=== PATIENT | male | born 1960 | race Two or more races ===

== ENCOUNTER → 2017-03-23 | Outpatient (CLI) | payer OTHER | END | disposition home or self-care (01) | LOC: RAD 13:24 | DX: M77.22 Periarthritis, left wrist (principal) ==

== ENCOUNTER → 2017-03-23 | Outpatient (CLI) | payer OTHER | END | disposition home or self-care (01) | LOC: SONOGRAMA 13:17 | DX: M77.22 Periarthritis, left wrist (principal) ==